=== PATIENT | male | born 1960 ===

== ENCOUNTER 2022-10-02 10:18 | Emergency (ER) | payer SELFPAY ==
[2022-10-02] MEDS ORDERED: Dexamethasone 4 MG/ML SDV IM ONE (13:55)
== END 2022-10-02 14:30 | disposition home or self-care (01) ==
LOC: DL.ED 10:18
DX: M54.50 Low back pain, unspecified (principal); G89.29 Other chronic pain; Z79.82 Long term (current) use of aspirin; Z88.7 Allergy status to serum and vaccine
CPT/HCPCS: 72100; 96372; 99283; 99284; J1100